=== PATIENT | male | born 1960 | race African-American/Black ===

== ENCOUNTER 2022-03-05 04:26 | Day surgery (SDC) | payer BC ==
[2022-02-28 13:58] VITALS: BMI 29.8
[2022-03-05] MEDS ORDERED: ONDANSETRON 4 MG/2 ML VIAL ONE ×2 (08:11→11:08)
[2022-03-05] MEDS ORDERED: MIDAZOLAM HCL 2 MG/2 ML SINGLE DOSE VIAL ONE (10:49)
[2022-03-05 13:17] VITALS: TEMP 98
[2022-03-05 13:22] VITALS: BP 118/71; PULSE 52
== END 2022-03-05 12:05 | disposition home or self-care (01) ==
LOC: JASU-SURG 04:26
PROVIDERS: ATTEND Urology
PROC: 0TF4XZZ Fragmentation in Left Kidney Pelvis, External Approach (ICD-10-PCS; principal; 2022-03-05 10:30)
DX: N20.0 Calculus of kidney (principal)